=== PATIENT | female | born 1960 | race Hispanic/Latino ===

== ENCOUNTER 2017-12-22 08:04 | Outpatient (CLI) | payer BC | END 2017-12-22 08:05 | disposition home or self-care (01) | LOC: RAD 08:04 → BICRAD 08:05 | PROVIDERS: ATTEND Family Medicine | DX: M25.561 Pain in right knee (principal); M25.562 Pain in left knee; M17.0 Bilateral primary osteoarthritis of knee; Z13.1 Encounter for screening for diabetes mellitus | CPT/HCPCS: 36415; 80053; 80061; 83036; 84439; 84443; 85025 ==

== ENCOUNTER 2020-09-27 13:30 | Outpatient (CLI) | payer BC | END 2020-09-27 13:31 | disposition home or self-care (01) | LOC: BICMAMMO 13:30 | PROVIDERS: ATTEND Family Medicine | DX: Z12.31 Encounter for screening mammogram for malignant neoplasm of breast (principal) | CPT/HCPCS: 77063; 77067 ==